=== PATIENT | male | born 1980 | race Caucasian/White ===

== ENCOUNTER 2016-07-09 15:46 | Emergency (ER) | payer MEDICAID ==
[2016-07-09] MEDS ORDERED: Haloperidol INJ IV/IM* 5 MG/ML AMP IM ONE (16:00)
[2016-07-09] MEDS ORDERED: diPHENhydraMINE IV* 50 MG/ML 1 ml VIAL (BENADRYL) ONE (16:00)
[2016-07-09] MEDS ORDERED: diPHENhydraMINE IV* 50 MG/ML 1 ml VIAL (BENADRYL) IM ONE (16:00)
[2016-07-09] MEDS ORDERED: LORazepam INJ* 2 MG/ML 1 ML VIAL ONE (16:00)
[2016-07-09] MEDS ORDERED: LORazepam INJ* 2 MG/ML 1 ML VIAL IM ONE (16:00)
[2016-07-09] MEDS ORDERED: Haloperidol INJ IV/IM* 5 MG/ML AMP ONE (16:00)
--- NOTE | 2016-07-09 18:21 | ED ---
Skylar Villarreal Salem, scribed for Doug Floyd MD on 07/09/16 at 1603 . Substance Abuse/Use - HPI Summary HPI Summary: Patient is a 36 y/o M who presents to the ED per law enforcement with EtOH intoxication. Per police, pt had been drinking at the [place] [employer] when the police were called and an advocate for the homeless requested. After the police left, pt became aggressive towards the advocate and festival attendants. The police were called again and pt was transported to the ED. Police report trouble ambulating and physical aggression. Pt has no complaints. - History Of Current Complaint Stated Complaint: 941 Hx Obtained From: Patient, Other: - Law enforcement. Onset/Duration of Drug/ETOH Abuse: Hours Ingestion History: Type/Name Of Drug - EtOH Overdose Characteristics: Oral Timing Of Abuse: Daily Severity Initially: Moderate Severity Currently: Moderate Character: Other - Physical aggressive. Aggravating Factor(s): Nothing Alleviating Factor(s): Nothing Associated Signs And Symptoms: Hostile - Allergies/Home Medications Allergies/Adverse Reactions: Allergies Allergy/AdvReac Type Severity Reaction Status Date / Time No Known Allergies Allergy Verified 10/08/15 18:48 PMH/Surg Hx/FS Hx/Imm Hx Previously Healthy: Yes Psychiatric History: Reports: Hx Substance Abuse - EtOH. - Surgical History Surgery Procedure, Year, and Place: None. - Family History Family History: Unable to obtain due to EtOH - Social History Alcohol Use: Daily Alcohol Amount: "a lot" Substance Use Type: Reports: Other Substance Use Comment - Amount & Last Used: unable to assess at this time Hx Tobacco Use: Yes Smoking Status (MU): Light Every Day Tobacco Smoker Review of Systems Positive: Other - EtOH intoxication. Positive: Other - Trouble ambulating. Positive: Other - Physical aggression. All Other Systems Reviewed And Are Negative: Yes Physical Exam Triage Information Reviewed: Yes Vital Signs On Initial Exam: Last Vital Signs 07/09/16 07/09/16 07/09/16 16:07 16:10 16:16 Temperature 98.2 F 98.2 F Pulse Rate 64 64 Respiratory 17 17 22 Rate Blood Pressure 128/87 128/87 (mmHg) O2 Sat by Pulse 97 97 Oximetry Vital Signs Reviewed: Yes Appearance: Positive: Well-Appearing, No Pain Distress Skin: Positive: Warm, Skin Color Reflects Adequate Perfusion, Dry Head/Face: Positive: Normal Head/Face Inspection Eyes: Positive: Normal ENT: Positive: Other - EtOH on breath. Neck: Positive: Supple, Nontender Respiratory/Lung Sounds: Positive: Clear to Auscultation, Breath Sounds Present Cardiovascular: Positive: RRR Abdomen Description: Positive: Nontender, Soft Musculoskeletal: Positive: Normal, Strength/ROM Intact Neurological: Positive: Normal, Slurred Speech Psychiatric: Positive: Other - Belligerent and threatening. Diagnostics - Vital Signs Vital Signs Temp Pulse Resp BP Pulse Ox 07/09/16 16:16 22 07/09/16 16:10 98.2 F 64 17 128/87 97 07/09/16 16:07 98.2 F 64 17 128/87 97 - Laboratory Lab Statement: Any lab studies that have been ordered have been reviewed, and results considered in the medical decision making process. Course/Dx - Course Course Of Treatment: Mr. South was brought in by the police for gatting aggressive with people while intoxicated in public. After arrival here it became very clear that the behavior would likely escalate. He was making threatening gestures at people and yelling. For his safety and ours he was chemically restrained and we are now waiting for him to sober up. - Diagnoses Provider Diagnoses: Alcohol intoxication - Physician Notifications Discussed Care Of Patient With: Dr. Ferro at change of shift Discharge - Discharge Plan Condition: Stable Disposition: OTHER Discharge Disposition Comment: Sign out. Patient Education Materials: Alcohol Intoxication (ED) Referrals: [facility] [place] PHYSICIAN REFERRAL [Outside] Additional Instructions: Please follow up with [facility] [place] referral. The documentation as recorded by the Skylar hernandez Salem accurately reflects the service I personally performed and the decisions made by me, Doug Floyd MD.
[2016-07-10 03:44] VITALS: BP 123/55
--- NOTE | 2016-07-10 04:26 | ED ---
Magan Villarreal Aidan, scribed for Seferino Ferro on 07/10/16 at 0424 . Progress - Progress Note Progress Note: The patient will be diagnosed with alcohol intoxication and discharged when the bus begins operating today because the patient is homeless. Course/Dx - Course Course Of Treatment: Mr. South was brought in by the police for gatting aggressive with people while intoxicated in public. After arrival here it became very clear that the behavior would likely escalate. He was making threatening gestures at people and yelling. For his safety and ours he was chemically restrained and we are now waiting for him to sober up. - Diagnoses Provider Diagnoses: Alcohol intoxication The documentation as recorded by the Magan hernandez Aidan accurately reflects the service I personally performed and the decisions made by , Seferino Ferro.
== END 2016-07-10 05:54 ==
LOC: ED 15:46
DX: F10.129 Alcohol abuse with intoxication, unspecified (principal)
CPT/HCPCS: 96372; 99282; J1200; J1630; J2060

== ENCOUNTER → 2016-10-31 00:02 | Emergency (ER) | payer MEDICAID ==
[~2016-10-31 00:02] MED LIST: Ibuprofen TAB* 600 MG PO ONE
[2016-10-31 01:55] LABS: Hematocrit 41 % (42-52); Hemoglobin 14.6 g/dl (14.0-18.0); Mean Corpuscular HGB Conc 35 g/dl (31-36); Mean Corpuscular Hemoglobin 34 pg (27-31); Mean Corpuscular Volume 95 fL (80-94); Mean Platelet Volume 7 um3 (7.4-10.4); Red Blood Count 4.32 10^6/ul (4.0-5.4); Red Cell Distribution Width 13 % (10.5-15); White Blood Count 6.5 10^3/ul (3.5-10.8)
[2016-10-31 02:06] LABS: ALT 111 U/L (7-52); AST 96 U/L (13-39); Acetaminophen < 15 mcg/mL; Albumin 4.4 g/dL (3.2-5.2); Alcohol 362 mg/dL (<10); Alkaline Phosphatase 72 U/L (34-104); Anion Gap 13 mmol/L (2-11); BUN/Creatinine Ratio 8.8 (8-20); Blood Urea Nitrogen 7 mg/dL (6-24); CO2 Carbon Dioxide 23 mmol/L (22-32); Calcium 9.2 mg/dL (8.6-10.3); Chloride 99 mmol/L (101-111); EGFR African American 140.7 (>60); EGFR Non-African American 109.4 (>60); Globulin 3.7 g/dL (2-4); Glucose 98 mg/dL (70-100); Potassium 3.8 mmol/L (3.5-5.0); Salicylate < 2.50 mg/dL (<30); Sodium 135 mmol/L (133-145); Total Protein 8.1 g/dL (6.4-8.9)
[2016-10-31 02:16] LABS: TSH (Thyroid Stimulating Horm) 0.69 mcIU/mL (0.34-5.60)
[2016-10-31 03:06] LABS: Urine Bilirubin Negative (Negative); Urine Glucose Negative (Negative); Urine Nitrite Negative (Negative)
[2016-10-31 03:17] LABS: Benzodiazepine Urine Screen None Detected (None Detect)
--- NOTE | 2016-10-31 06:46 | ED ---
Shannan Villarreal Rebecca, scribed for Seferino Ferro on 10/31/16 at 0024 . Substance Abuse/Use - HPI Summary HPI Summary: Pt is a 36 y/o M PHAM who presents to ED with EtOH intoxication. Pt reports he is unsure of who called EMS today. Confirms EtOH use tonight, unsure of the amount. Denies SIs, HIs, hallucinations. Reports he did not use any drugs besides EtOH. - History Of Current Complaint Stated Complaint: ETOH Time Seen by Provider: 10/31/16 00:11 Hx Obtained From: Patient Ingestion History: Type/Name Of Drug - EtOH Overdose Characteristics: Oral Aggravating Factor(s): Nothing Alleviating Factor(s): Nothing Associated Signs And Symptoms: Negative - Allergies/Home Medications Allergies/Adverse Reactions: Allergies Allergy/AdvReac Type Severity Reaction Status Date / Time No Known Allergies Allergy Verified 10/08/15 18:48 PMH/Surg Hx/FS Hx/Imm Hx Endocrine/Hematology History: Denies: Hx Diabetes Cardiovascular History: Denies: Hx Hypertension Psychiatric History: Reports: Hx Substance Abuse - EtOH. - Surgical History Surgery Procedure, Year, and Place: None. - Family History Known Family History: Negative: Diabetes - Social History Alcohol Use: Daily Alcohol Amount: "a lot" Substance Use Type: Reports: Other Substance Use Comment - Amount & Last Used: unable to assess at this time Hx Tobacco Use: Yes Smoking Status (MU): Light Every Day Tobacco Smoker Review of Systems Positive: Other - EtOH intoxication Neurological: Other - NEGATIVE: Hallucinations Positive: Other - NEGATIVE: SIs, HIs All Other Systems Reviewed And Are Negative: Yes Physical Exam - Summary Physical Exam Summary: Appearance: Well appearing, no pain distress Skin: warm, dry, reflects adequate perfusion Head/face: normal Eyes: EOMI, EUGENIO ENT: normal Neck: supple, nontender Respiratory: CTA, breath sounds present Cardiovascular: RRR, pulses symmetrical Abdomen: nontender, soft Bowel: present Musculoskeletal: normal, strength/ROM intact Neuro: normal, sensory motor intact, A&Ox3 Triage Information Reviewed: Yes Vital Signs Reviewed: Yes Diagnostics - Laboratory Result Diagrams: 10/31/16 01:45 10/31/16 01:45 Lab Statement: Any lab studies that have been ordered have been reviewed, and results considered in the medical decision making process. Course/Dx - Course Assessment/Plan: Pt is a 36 y/o M BIBA who presents to ED with EtOH intoxication. Pt reports he is unsure of who called EMS today. Confirms EtOH use tonight, unsure of the amount. Denies SIs, HIs, hallucinations. Reports he did not use any drugs besides EtOH. Serum alcohol of 362. Upon EtOH metabolism, pt will be D/C to home with Dx of acute alcohol intoxication and a follow up with his PCP. He understands and agrees. - Diagnoses Provider Diagnoses: Acute alcohol intoxication Discharge - Discharge Plan Condition: Stable Disposition: HOME Patient Education Materials: Alcohol Intoxication (ED) Referrals: [facility] [place] PHYS[facility]IAN REFERRAL [Outside] - 3 Days The documentation as recorded by the Shannan hernandez Rebecca accurately reflects the service I personally performed and the decisions made by me, Seferino Ferro.
[2016-10-31 11:43] VITALS: BP 110/68
== END | disposition home or self-care (01) ==
LOC: ED 00:02
DX: F10.129 Alcohol abuse with intoxication, unspecified (principal); F17.210 Nicotine dependence, cigarettes, uncomplicated
CPT/HCPCS: 36415; 80053; 80307; 80320; 80329; 81003; 84443; 85025; 99285; A9270-GY; G0480

== ENCOUNTER 2018-08-22 07:43 | Emergency (ER) | payer OTHER ==
[2018-08-22 08:02] VITALS: BP 106/72
--- NOTE | 2018-08-22 08:51 | UC ---
Elbow Pain - HPI Summary HPI Summary: A FEW DAYS AGO PATIENT FELL AND STRUCK HIS RIGHT ELBOW. DEVELOPED SWELLING WHICH HAS BEEN PERSISTENT. PAIN IS MINIMAL. NO NUMBNESS OR TINGLING. NO FEVER. - History of Current Complaint Chief Complaint: UCUpperExtremity Stated Complaint: RT ELBOW INJURY Time Seen by Provider: 08/22/18 08:08 Hx Obtained From: Patient Onset/Duration: Days, Still Present Severity Initially: Moderate Severity Currently: Mild Pain Intensity: 0 Pain Scale Used: 0-10 Numeric Location Of Pain: Is Discrete @ - RIGHT ELBOW Character: Dull Associated Signs And Symptoms: Positive: Swelling. Negative: Redness - Allergies/Home Medications Allergies/Adverse Reactions: Allergies Allergy/AdvReac Type Severity Reaction Status Date / Time wool Allergy Hives Verified 08/22/18 08:01 opiates Allergy See Comment Uncoded 08/22/18 08:01 Home Medications: Home Medications Fluoxetine (Nf) Cap [Fluoxetine HCl] 1 tab PO DAILY 08/22/18 [History Confirmed 08/22/18] Magnesium 1 tab PO QPM 08/22/18 [History Confirmed 08/22/18] Multivitamin [Multivitamins] 1 tab PO DAILY 08/22/18 [History Confirmed 08/22/18 ] Naproxen Sodium [Aleve] 440 mg PO ONCE PRN 08/22/18 [History Confirmed 08/22/18] PMH/Surg Hx/FS Hx/Imm Hx Psychological History: Bipolar Disorder, Schizophrenia - Surgical History Surgical History: Yes Surgery Procedure, Year, and Place: None. - Family History Known Family History: Negative: Diabetes - Social History Alcohol Use: Daily Alcohol Amount: "a lot" Substance Use Type: Marijuana Substance Use Comment - Amount & Last Used: in the past Smoking Status (MU): Current Every Day Smoker Household Exposure Type: Cigarettes Review of Systems All Other Systems Reviewed And Are Negative: Yes Constitutional: Positive: Negative Skin: Positive: Negative Respiratory: Positive: Negative Cardiovascular: Positive: Negative Gastrointestinal: Positive: Negative Musculoskeletal: Positive: Edema Physical Exam Triage Information Reviewed: Yes Appearance: Well-Appearing, No Pain Distress, Well-Nourished Vital Signs: Initial Vital Signs Temp 98 F 08/22/18 07:52 Pulse 59 08/22/18 07:52 Resp 18 08/22/18 07:52 BP 106/72 08/22/18 07:52 Pulse Ox 100 08/22/18 07:52 Vital Signs Reviewed: Yes Eyes: Positive: Conjunctiva Clear ENT: Positive: Hearing grossly normal Neck: Positive: Supple Respiratory: Positive: No respiratory distress, No accessory muscle use Cardiovascular: Positive: Pulses Normal Abdomen Description: Positive: Soft Musculoskeletal: Positive: ROM Intact, Edema @ - RIGHT ELBOW EDEMA, Other: - NO BONY TENDERNESS Neurological: Positive: Alert Psychological: Positive: Age Appropriate Behavior Skin: Negative: Rashes Diagnostics - Radiology RIGHT ELBOW XRAYS Radiology Interpretation Completed By: Radiologist Summary of Radiographic Findings: 1. Severe dorsal soft tissue swelling superficial to the olecranon process concerning for nonspecific soft tissue plane hematoma or hemorrhagic olecranon bursitis. 2. Small elbow joint effusion. No fracture evident. Elbow Pain Course/Dx - Course Course Of Treatment: X-RAY SHOWS CHANGES CONSISTENT WITH OLECRANON BURSITIS, POSSIBLY HEMORRHAGIC. NO BONY INJURY EVIDENT. PATIENT IS RELATIVELY PAIN-FREE AND HAS FULL RANGE OF MOTION. NO EVIDENCE OF SEPTIC BURSITIS AT PRESENT. NURYS WRAP APPLIED BY RN. ADVISED TO CONTINUE COMPRESSION AND TO AVOID RECURRENT TRAUMA TO THE AREA. FOLLOW-UP ORTHO. SYMPTOMS SHOULD RESOLVE WITH TIME ALTHOUGH THIS MAY TAKE SEVERAL WEEKS. INSTRUCTED TO GO TO THE ER WITHOUT FAIL IF HE DEVELOPS WORSENING PAIN, REDNESS OF THE SKIN, FEVER OR ANY OTHER CONCERNING SYMPTOMS. - Differential Dx/Diagnosis Provider Diagnosis: Olecranon bursitis, right elbow Discharge - Sign-Out/Discharge Documenting (check all that apply): Patient Departure All imaging exams completed and their final reports reviewed: Yes - Discharge Plan Condition: Stable Disposition: HOME Patient Education Materials: Elbow Bursitis (ED) Referrals: Bolivar Holguin MD [Medical Doctor] - 1 Week Additional Instructions: X-RAY SHOWS SOFT TISSUE SWELLING CONSISTENT WITH OLECRANON BURSITIS. POSSIBLY HEMORRHAGIC. NO BONY INJURY EVIDENT. COMPRESSION WILL HELP EXPEDITE RESOLUTION. ICE, OTC ANTI-INFLAMMATORIES NEEDED FOR DISCOMFORT. CALL ORTHO TODAY TO SCHEDULE A FOLLOW-UP APPOINTMENT. GO TO THE ER WITHOUT FAIL IF YOU DEVELOP WORSENING PAIN, FEVER, REDNESS OF THE JOINT OR ANY OTHER CONCERNING SYMPTOMS. - Billing Disposition and Condition Condition: STABLE Disposition: Home
== END 2018-08-22 09:05 | disposition home or self-care (01) ==
LOC: UCEAST 07:43
DX: M70.21 Olecranon bursitis, right elbow (principal); F31.9 Bipolar disorder, unspecified; F20.9 Schizophrenia, unspecified; F17.210 Nicotine dependence, cigarettes, uncomplicated; Z88.5 Allergy status to narcotic agent
CPT/HCPCS: 99212; G0463

== ENCOUNTER 2018-11-04 17:31 | Emergency (ER) | payer OTHER ==
--- NOTE | 2018-11-04 18:11 | ED ---
Substance Abuse/Use - HPI Summary HPI Summary: This patient is a 38 year old M presenting to ED with a chief complaint of heroin overdose since [employer]. Patient was using EtOH and heroin today. He received 10mg nasal Narcan from EMS. Upon arrival to the ED, patient reports being drowsy but is able to answer questions. He has swelling of the right hand. He states he punched something. Patient reports still being high, and says that he s only used heroin twice. The patient rates the pain 0/10 in severity. Symptoms aggravated by nothing. Symptoms alleviated by Narcan administration. - History Of Current Complaint Chief Complaint: EDSubstanceAbuse Stated Complaint: "OVERDOSE PER EMS" Time Seen by Provider: 11/04/18 17:36 Hx Obtained From: Patient, EMS Ingestion History: Approximate Time Of Ingestion - [employer] Severity Initially: Moderate Severity Currently: Mild Character: Other - Drowsy Aggravating Factor(s): Nothing Alleviating Factor(s): Nothing Associated Signs And Symptoms: Other: - Drowsy, right hand swelling - Allergies/Home Medications Allergies/Adverse Reactions: Allergies Allergy/AdvReac Type Severity Reaction Status Date / Time wool Allergy Hives Verified 11/04/18 17:50 opiates Allergy See Comment Uncoded 08/22/18 08:01 Home Medications: Home Medications Fluoxetine HCl 40 mg PO DAILY 11/04/18 [History Confirmed 11/04/18] PMH/Surg Hx/FS Hx/Imm Hx Endocrine/Hematology History: Denies: Hx Diabetes Cardiovascular History: Denies: Hx Hypertension Psychiatric History: Reports: Hx Substance Abuse - EtOH. - Surgical History Surgery Procedure, Year, and Place: None. Infectious Disease History: No Infectious Disease History: Denies: Traveled Outside the [place] in Last 30 Days - Family History Known Family History: Negative: Diabetes Family History: Unable to obtain due to EtOH - Social History Alcohol Use: Daily Alcohol Amount: "a lot" Hx Substance Use: Yes Substance Use Type: Reports: Heroin, Marijuana Substance Use Comment - Amount & Last Used: in the past Hx Tobacco Use: Yes Smoking Status (MU): Former Smoker Review of Systems Skin: Other - Right hand swelling Neurological: Other - Drowsy All Other Systems Reviewed And Are Negative: Yes Physical Exam - Summary Physical Exam Summary: Appearance: The patient is well-nourished in no acute distress and in no acute pain. Skin: The skin is warm and dry, and skin color reflects adequate perfusion. HEENT: The head is normocephalic and atraumatic. The pupils are equal and reactive. The conjunctivae are clear and without drainage. Nares are patent and without drainage. Mouth reveals moist mucous membranes, and the throat is without erythema and exudate. The external ears are intact. The ear canals are patent and without drainage. The tympanic membranes are intact. Neck: The neck is supple with full range of motion and non-tender. There are no carotid bruits. There is no neck vein distension. Respiratory: Chest is non-tender. Lungs are clear to auscultation and breath sounds are symmetrical and equal. Cardiovascular: Heart is regular rate and rhythm. There is no murmur or rub auscultated. There is no peripheral edema and pulses are symmetrical and equal. Abdomen: The abdomen is soft and non-tender. There are normal bowel sounds heard in all four quadrants and there is no organomegaly palpated. Musculoskeletal: There is no back tenderness noted. Extremities are non-tender with full range of motion. There is good capillary refill. There is no peripheral edema or calf tenderness elicited. Neurological: Slurred speech. Psychiatric: The patient has an appropriate affect and does not exhibit any anxiety or depression. Triage Information Reviewed: Yes Vital Signs On Initial Exam: Initial Vitals Temp Pulse Resp BP Pulse Ox 98.8 F 105 21 126/93 95 11/04/18 17:45 11/04/18 17:45 11/04/18 17:45 11/04/18 17:45 11/04/18 17:45 Vital Signs Reviewed: Yes Diagnostics - Vital Signs Vital Signs Temp Pulse Resp BP Pulse Ox 11/04/18 17:49 102 26 126/93 89 11/04/18 17:45 98.8 F 105 21 126/93 95 - Laboratory Lab Statement: Any lab studies that have been ordered have been reviewed, and results considered in the medical decision making process. Course/Dx - Course Course Of Treatment: Mr. South has been despondent over the of a friend recently. He drinks alcohol every day and this is not unusual for him. Today he used heroin which is very uncommon for him. EMS found him poorly responsive and had to administer several rounds of Narcan to bring him around. He has no complaint to me at this time but is homeless and states that he would. Resting for a while here. I think he needs to be evaluated for his intoxication when he awakens and prescribed Narcan. - Diagnoses Provider Diagnoses: Heroin overdose, Alcohol intoxication Discharge ED - Sign-Out/Discharge Documenting (check all that apply): Sign-Out Patient Signing out patient TO: Tgire Saundres Receiving patient FROM: Doug Floyd Patient Received Moderate/Deep Sedation with Procedure: No - Discharge Plan Condition: Stable - Billing Disposition and Condition Condition: STABLE - Attestation Statements Document Initiated by Stephanye: Yes Documenting Scribe: Jeremie Rodrigues Provider For Whom Alessia is Documenting (Include Credential): Doug Floyd MD Scribe Attestation: I, Jeremie Rodrigues, scribed for Doug Floyd MD on 11/04/18 at 1903. Scribe Documentation Reviewed: Yes Provider Attestation: The documentation as recorded by the billibJeremie barnett accurately reflects the service I personally performed and the decisions made by me, Doug Floyd MD Status of Scribe Document: Viewed
[2018-11-04] MEDS ORDERED: NS 0.9% 1000 ML** 1,000 ML IV ONE (20:52)
--- NOTE | 2018-11-04 21:11 | UC ---
- Progress Note Progress Note: Pt was signed out from Dr. Floyd to Dr. Saunders pending sobriety Re-Evaluation - Re-Evaluation First Eval Re-Evaluation Time: 21:05 Comment: ambulatory, no signs of intoxication, alert & oriented x 3 Course/Dx - Diagnoses Provider Diagnoses: Substance use disorder Discharge ED - Sign-Out/Discharge Documenting (check all that apply): Patient Departure - discharge Patient Received Moderate/Deep Sedation with Procedure: No - Discharge Plan Condition: Stable Disposition: HOME Patient Education Materials: Polysubstance Abuse (ED), Alcohol Use Disorder (ED ) Referrals: [facility] [Outside] - 3 Days Additional Instructions: You were seen in the emergency department for alcohol intoxication and heroin use. Please do not use drugs/drink and drive. Please follow up with your primary care doctor in next 2-3 days and return to emergency department for worsening or concerning symptoms. It was a pleasure taking care of you today. - Billing Disposition and Condition Condition: STABLE Disposition: Home - Attestation Statements Document Initiated by Alessia: Yes Documenting Scribe: Ivon Mitchell Provider For Whom Alessia is Documenting (Include Credential): Dr. Tigre Saunders MD Scribe Attestation: I, Ivon Mitchell, scribed for Dr. Tigre Saunders MD on 11/05/18 at 0513. Scribe Documentation Reviewed: Yes Provider Attestation: The documentation as recorded by the Ivon hernandez accurately reflects the service I personally performed and the decisions made by me, Dr. Tigre Saunders MD Status of Scribe Document: Viewed
[2018-11-04 21:35] VITALS: BP 135/94
== END 2018-11-04 21:33 | disposition home or self-care (01) ==
LOC: ED 17:31
DX: T40.1X1A Poisoning by heroin, accidental (unintentional), initial encounter (principal); F10.929 Alcohol use, unspecified with intoxication, unspecified; Y92.9 Unspecified place or not applicable; Z87.891 Personal history of nicotine dependence; Z79.899 Other long term (current) drug therapy; Z88.5 Allergy status to narcotic agent
CPT/HCPCS: 99283

== ENCOUNTER 2019-05-04 19:21 | Emergency (ER) | payer MEDICAID ==
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
[2019-05-04 19:51] LABS: ABS Lymphocytes 2.6 10^3/ul (1.0-4.8); ABS Monocytes 0.4 10^3/ul (0-0.8); ABS Neutrophils 4.1 10^3/ul (1.5-7.7); Eosinophil % 0.4 %; Hematocrit 42 % (42-52); Hemoglobin 14.7 g/dL (14.0-18.0); Lymphocyte % 36.9 %; Mean Corpuscular HGB Conc 35 g/dL (31-36); Mean Corpuscular Hemoglobin 31 pg (27-31); Mean Corpuscular Volume 90 fL (80-94); Mean Platelet Volume 6.6 fL (7.4-10.4); Platelet Count 321 10^3/uL (150-450); Red Blood Count 4.69 10^6 /uL (4.18-5.48); Red Cell Distribution Width 13 % (10-15); White Blood Count 7.1 10^3/uL (3.5-10.8)
[2019-05-04 20:08] LABS: Albumin 4.7 g/dL (3.2-5.2); Albumin/Globulin Ratio 1.3 (1-3); BUN/Creatinine Ratio 7.6 (8-20); Calcium 9.6 mg/dL (8.6-10.3); EGFR African American 132.8 (>60); EGFR Non-African American 109.8 (>60); Globulin 3.7 g/dL (2-4); Total Bilirubin 0.4 mg/dL (0.2-1.0); Total Protein 8.4 g/dL (6.4-8.9)
[2019-05-04 21:27] LABS: Urine Appearance Clear; Urine Bilirubin Negative (Negative); Urine Blood Negative (Negative); Urine Color Straw; Urine Glucose Negative (Negative); Urine Ketones Negative (Negative); Urine Nitrite Negative (Negative); Urine Protein Negative (Negative); Urine Specific Gravity 1.004 (1.010-1.030); Urine Urobilinogen Negative (Negative)
[2019-05-04] MEDS ORDERED: Haloperidol TAB* 5 MG PO ONE (21:43)
--- NOTE | 2019-05-04 23:13 | ED ---
Progress - Progress Note Progress Note: The patient is a sign-out from Dr. Keanu Liang MD, to Dr. Olga Sutherland MD, at change of shift at 2200 on 05/04/19, pending sobriety and discharge. Patient asleep without any complaints. The patient is a sign-out from Dr. Olga Sutherland MD, to Dr. Tigre Sanuders MD, at change of shift at 0700 on 05/05/19, pending sobriety and discharge. Re-Evaluation - Re-Evaluation First Eval Re-Evaluation Time: 21:44 Comment: Patient has been issuing continued verbal threats, Haldol 5 mg to be administered. Course/Dx - Diagnoses Provider Diagnoses: Alcohol intoxication, Facial contusion Discharge ED - Sign-Out/Discharge Documenting (check all that apply): Sign-Out Patient, Receiving Sign-Out Signing out patient TO: Tigre Saunders - Patient is a sign-out to Dr. Tigre Saunders MD, at change of shift at 0700 on 05/05/19, pending sobriety and discharge. Receiving patient FROM: Keanu Liang - Patient is a sign-out from Dr. Keanu Liang MD, at change of shift at 2200 on 05/04/19, pending sobriety and discharge. - Discharge Plan Condition: Stable Referrals: No Primary Care Phys,NOPCP [Primary Care Provider] - - Billing Disposition and Condition Condition: STABLE - Attestation Statements Document Initiated by Scribe: Yes Documenting Scribe: Leonela Fritz Provider For Whom Alessia is Documenting (Include Credential): Olga Sutherland MD Scribe Attestation: Leonela Villarreal, scribed for Olga Sutherland MD on 05/05/19 at 0639. Scribe Documentation Reviewed: Yes Provider Attestation: The documentation as recorded by the Leonela hernandez accurately reflects the service I personally performed and the decisions made by me, Olga Sutherland MD Status of Scribe Document: Viewed
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
[2019-05-05 07:34] VITALS: BP 114/83
== END 2019-05-05 07:33 | disposition home or self-care (01) ==
LOC: ED 19:21
DX: F10.129 Alcohol abuse with intoxication, unspecified (principal); S00.83XA Contusion of other part of head, initial encounter; X58.XXXA Exposure to other specified factors, initial encounter; Y92.9 Unspecified place or not applicable
CPT/HCPCS: 36415; 70450; 70486; 72125; 80053; 80320; 81003; 83605; 85025; 93005; 99284; A9270-GY; G0480

== ENCOUNTER 2020-08-20 06:29 | Inpatient (IN) ==
[2020-08-20] MEDS ORDERED: EPINEPHrine SYR 0.1MG/ML 10 ml SYRINGE ONE (06:31)
[2020-08-20] MEDS ORDERED: Norepinephrine 16MCG/ML IVPRE 4,000 MCG/250 ML BAG IV ONE (06:32)
[2020-08-20 06:57] LABS: Hematocrit 38 % (42-52); Hemoglobin 12.5 g/dL (14.0-18.0); Mean Corpuscular HGB Conc 33 g/dL (31-36); Mean Corpuscular Hemoglobin 30 pg (27-31); Mean Corpuscular Volume 91 fL (80-94); Mean Platelet Volume 7.7 fL (7.4-10.4); Platelet Count 358 10^3/uL (150-450); Red Blood Count 4.19 10^6 /uL (4.18-5.48); Red Cell Distribution Width 14 % (10-15); White Blood Count 13.4 10^3/uL (3.5-10.8)
[2020-08-20] MEDS ORDERED: Norepinephrine 16MCG/ML IVPRE 4,000 MCG/250 ML BAG IV SCH (07:00)
[2020-08-20 07:01] LABS: PO2 Arterial 143 mmHg (80-100)
[2020-08-20 07:04] LABS: INR 1.31 (0.86-1.15)
[2020-08-20 07:09] LABS: ALT 19 U/L (7-52); AST 29 U/L (13-39); Albumin 3.4 g/dL (3.2-5.2); Albumin/Globulin Ratio 1.4 (1-3); Alkaline Phosphatase 84 U/L (35-149); Anion Gap 23 mmol/L (2-11); Blood Urea Nitrogen 17 mg/dL (6-24); CO2 Carbon Dioxide 23 mmol/L (22-32); Calcium 8.7 mg/dL (8.6-10.3); Chloride 96 mmol/L (101-111); EGFR African American 38.3 (>60); EGFR Non-African American 31.7 (>60); Globulin 2.5 g/dL (2-4); Glucose 122 mg/dL (70-100); Potassium 3.3 mmol/L (3.5-5.0); Sodium 142 mmol/L (135-145); Total Protein 5.9 g/dL (6.4-8.9)
[2020-08-20 07:10] LABS: PCO2 Arterial 87 mmHg (35-45)
[2020-08-20] MEDS ORDERED: KCL 10 MEQ/50 ML IVPREMIX 10 MEQ/50 ML BAG IV ONE (07:16)
[2020-08-20 07:20] LABS: Troponin I 0.05 ng/mL (<0.03)
[2020-08-20] MEDS ORDERED: Rocuronium 50 mg VIAL 10 mg/ml 5 ml VIAL (50 mg) ONE ×2 (07:35→07:47)
[2020-08-20] MEDS ORDERED: Succinylcholine 200 mg VIAL 20 mg/ml 10 ml VIAL (200 mg) ONE (07:36)
[2020-08-20] MEDS ORDERED: Midazolam 10 mg/10 ml VIAL 1 mg/ml 10 ml VIAL (10 mg) ONE (07:47)
[2020-08-20] MEDS ORDERED: Piperacillin/Tazobac ADVAN 3.375 GM in NS 0.9% 100 ml BAG 100 ML IV ONE ×2 (07:50→20:16)
[2020-08-20] MEDS ORDERED: Propofol 10 mg/ml 100 ML BTL 100 ML ONE ×2 (07:50→11:58)
[2020-08-20] MEDS ORDERED: Midazolam 50 MG VIAL IV DRIP 50 ML IV SCH (08:00)
[2020-08-20] MEDS ORDERED: Lactated Ringers 1000 ml BAG 1,000 ML IV ONE (08:05)
[2020-08-20 08:51] LABS: RBC Morphology Normal (Normal)
[2020-08-20 08:52] LABS: ABS Lymphocytes 1.7 10^3/ul (1.0-4.8); ABS Monocytes 0.7 10^3/ul (0-0.8); Eosinophil % 0.1 %; Lymphocyte % 12.5 %; Nucleated Red Blood Cells % 0.1
[2020-08-20 09:22] LABS: Urine Appearance Cloudy; Urine Bilirubin Negative (Negative); Urine Blood 3+ (Negative); Urine Color Yellow; Urine Glucose 3+(>=500 mg/dL) (Negative); Urine Ketones Negative (Negative); Urine Nitrite Negative (Negative); Urine Protein 1+(30 mg/dL) (Negative); Urine Specific Gravity 1.007 (1.002-1.030); Urine Urobilinogen Negative (Negative)
[2020-08-20 09:25] LABS: Urine Benzodiazepine Screen Presumptive Positive (None Detect); Urine Cannabinoids Screen None Detected (None Detect); Urine Opiates Screen None Detected (None Detect)
[2020-08-20 09:45] LABS: Urine Bacteria Absent (Absent); Urine Red Blood Cell 3+(>10/hpf) (Absent); Urine Sperm Present (Absent); Urine Squamous Epithelial Cell Present (Absent); Urine White Blood Cell 1+(6-10/hpf) (Absent)
[2020-08-20] MEDS: Chlorhexidine MOUTHWASH 0.12% 15 ML UDC TOPICAL SCH ×4 (10:11→19:35)
[2020-08-20] MEDS: Heparin 5000 UNITS/ML 1 mL VIAL SUBCUT SCH ×3 (10:11→22:19)
[2020-08-20] MEDS: Pantoprazole VIAL 40 MG VIAL IV SCH (10:11)
[2020-08-20 10:42] LABS: PCO2 Arterial 46 mmHg (35-45); PO2 Arterial 103 mmHg (80-100)
[2020-08-20 10:47] LABS: Blood Urea Nitrogen 14 mg/dL (6-24); CO2 Carbon Dioxide 18 mmol/L (22-32); EGFR African American 87.9 (>60); EGFR Non-African American 72.6 (>60); Glucose 66 mg/dL (70-100); Magnesium 1.3 mg/dL (1.9-2.7); Potassium 2.8 mmol/L (3.5-5.0); Sodium 141 mmol/L (135-145)
[2020-08-20 10:52] LABS: Magnesium 2.9 mg/dL (1.9-2.7); Phosphorus 13.9 mg/dL (2.5-5.0)
[2020-08-20] MEDS ORDERED: Magnesium Sulf 4 GM/100 ML IV 4,000 MG/100 ML BAG IVPB ONE (10:53)
[2020-08-20 11:03] LABS: Troponin I 0.04 ng/mL (<0.03)
[2020-08-20] MEDS ORDERED: Potassium Chloride LIQUID 20 MEQ/15 ML LIQUID PO ONE (11:06)
[2020-08-20] MEDS ORDERED: Potassium Chlor 20 meq TAB.ER PO ONE (11:06)
[2020-08-20] MEDS: KCL 20 MEQ/100 ML IVPREMIX 20 MEQ/100 ML BAG IV SCH ×3 (11:09→15:27)
[2020-08-20 11:13] LABS: Anion Gap 11 mmol/L (2-11); Calcium 5.3 mg/dL (8.6-10.3); Chloride 112 mmol/L (101-111)
[2020-08-20] MEDS ORDERED: Valproic Acid IV 1,500 MG in NS 0.9% 100 ml BAG 100 ML IVPB ONE (11:26)
[2020-08-20] MEDS ORDERED: Perflutren Lipid Microsphere 3 ML VIAL ONE (11:29)
[2020-08-20] MEDS ORDERED: Calcium Gluconate 2 GM in NS 0.9% 100 ml BAG 100 ML IV ONE (11:46)
[2020-08-20] MEDS ORDERED: Valproic Acid IV 500 MG in NS 0.9% 100 ml BAG 100 ML IVPB ONE (12:00)
[2020-08-20] MEDS: Propofol 10 mg/ml 100 ML BTL 100 ML IV SCH ×3 (12:03→22:22)
[2020-08-20 12:25] LABS: Alcohol, S < 10 mg/dL (<10)
[2020-08-20] MEDS ORDERED: fentaNYL 100 mcg/2 ml 50 MCG/ML VIAL ONE (14:54)
[2020-08-20] MEDS ORDERED: fentaNYL 100 mcg/2 ml 50 MCG/ML VIAL IV SLOW PU ONE (15:00)
[2020-08-20 17:22] LABS: Calcium 8.6 mg/dL (8.6-10.3)
[2020-08-20 17:28] LABS: EGFR African American 67.4 (>60); EGFR Non-African American 55.7 (>60)
[2020-08-20 17:30] LABS: Potassium 6.1 mmol/L (3.5-5.0)
[2020-08-20 18:02] LABS: Calcium 8.6 mg/dL (8.6-10.3); EGFR African American 71.4 (>60); Magnesium 2.6 mg/dL (1.9-2.7)
[2020-08-20 18:08] LABS: Potassium 6.2 mmol/L (3.5-5.0)
[2020-08-20] MEDS ORDERED: Sodium Polystyrene ORAL.SUSP 15 GM/60 ML BTL PO ONE (18:11)
[2020-08-20] MEDS ORDERED: Acetaminophen IV 1 GM/100ML 100 ML IV ONE (18:42)
[2020-08-20 20:46] LABS: PCO2 Arterial 39 mmHg (35-45); PO2 Arterial 179 mmHg (80-100)
[2020-08-20] MEDS ORDERED: Zosyn per Pharmacy NOTE FOLLOW UP SCH (21:00)
[2020-08-20 21:14] LABS: Urine Benzodiazepine Screen Presumptive Positive (None Detect); Urine Cannabinoids Screen None Detected (None Detect); Urine Opiates Screen None Detected (None Detect)
[2020-08-20 21:29] LABS: Anion Gap 11 mmol/L (2-11); Blood Urea Nitrogen 17 mg/dL (6-24); CO2 Carbon Dioxide 24 mmol/L (22-32); Calcium 8.4 mg/dL (8.6-10.3); Chloride 99 mmol/L (101-111); EGFR African American 81.1 (>60); EGFR Non-African American 67.1 (>60); Glucose 101 mg/dL (70-100); Potassium 4.9 mmol/L (3.5-5.0); Sodium 134 mmol/L (135-145); Troponin I 0.22 ng/mL (<0.03)
[2020-08-20 21:36] LABS: Urine Buprenorphine Screen None Detected (None Detect); Urine Fentanyl Screen Presumptive Positive (None Detect); Urine Hydrocodone Screen None Detected (None Detect)
[2020-08-21] MEDS: NS 0.9% 1000 ml BAG 1,000 ML IV SCH ×4 (00:14→23:40)
[2020-08-21] MEDS: ZOSYN 3.375 GM Q8H per EXTENDED INFUSION IV SCH ×3 (00:14→17:30)
[2020-08-21] MEDS: Chlorhexidine MOUTHWASH 0.12% 15 ML UDC TOPICAL SCH ×7 (00:15→23:40)
[2020-08-21] MEDS: Propofol 10 mg/ml 100 ML BTL 100 ML IV SCH ×6 (02:45→21:44)
[2020-08-21] MEDS: fentaNYL 100 mcg/2 ml 50 MCG/ML VIAL IV SLOW PU PRN ×4 (02:58→21:56)
[2020-08-21 04:45] LABS: ALT 51 U/L (7-52); AST 196 U/L (13-39); Albumin 3.3 g/dL (3.2-5.2); Albumin/Globulin Ratio 1.1 (1-3); Alkaline Phosphatase 56 U/L (35-149); Anion Gap 9 mmol/L (2-11); Blood Urea Nitrogen 16 mg/dL (6-24); CO2 Carbon Dioxide 24 mmol/L (22-32); Calcium 8.4 mg/dL (8.6-10.3); Chloride 101 mmol/L (101-111); EGFR African American 113.1 (>60); EGFR Non-African American 93.5 (>60); Globulin 2.9 g/dL (2-4); Glucose 121 mg/dL (70-100); Magnesium 2.5 mg/dL (1.9-2.7); Phosphorus 3.4 mg/dL (2.5-5.0); Potassium 4.3 mmol/L (3.5-5.0); Sodium 134 mmol/L (135-145); Total Protein 6.2 g/dL (6.4-8.9)
[2020-08-21 04:47] LABS: Hematocrit 38 % (42-52); Hemoglobin 13.3 g/dL (14.0-18.0); Mean Corpuscular HGB Conc 35 g/dL (31-36); Mean Corpuscular Hemoglobin 30 pg (27-31); Mean Corpuscular Volume 86 fL (80-94); Mean Platelet Volume 7.3 fL (7.4-10.4); Platelet Count 239 10^3/uL (150-450); Red Blood Count 4.42 10^6 /uL (4.18-5.48); Red Cell Distribution Width 14 % (10-15); White Blood Count 13.5 10^3/uL (3.5-10.8)
[2020-08-21 04:53] LABS: Troponin I 0.16 ng/mL (<0.03)
[2020-08-21 05:10] LABS: Vitamin B12 237 pg/mL (180-914)
[2020-08-21] MEDS: Heparin 5000 UNITS/ML 1 mL VIAL SUBCUT SCH ×3 (05:48→21:04)
[2020-08-21 05:52] LABS: RBC Morphology Normal (Normal)
[2020-08-21 05:54] LABS: ABS Lymphocytes 0.5 10^3/ul (1.0-4.8); ABS Neutrophils 12.3 10^3/ul (1.5-7.7)
[2020-08-21] MEDS ORDERED: Dextran 70/Hypromellose Tears Eye Drops 15 ml BTL (for Artificials Tears) BOTH EYES PRN (06:58)
[2020-08-21] MEDS: Pantoprazole VIAL 40 MG VIAL IV SCH (08:04)
[2020-08-21] MEDS: Artificial Tear OPHTH.OINT 3.5 GM BOTH EYES PRN (11:52)
[2020-08-21] MEDS ORDERED: fentaNYL 100 mcg/2 ml 50 MCG/ML VIAL IV SLOW PU ONE (16:36)
[2020-08-21] MEDS ORDERED: fentaNYL 100 mcg/2 ml 50 MCG/ML VIAL ONE (16:37)
[2020-08-21] MEDS: Midazolam 2 mg/2 ml VIAL 1 mg/ml 2 ml VIAL (2 mg) IV SLOW PU PRN (23:45)
[2020-08-22] MEDS: Propofol 10 mg/ml 100 ML BTL 100 ML IV SCH ×8 (01:05→22:09)
[2020-08-22] MEDS ORDERED: Acetaminophen IV 1 GM/100ML 100 ML IV ONE (01:06)
[2020-08-22] MEDS: ZOSYN 3.375 GM Q8H per EXTENDED INFUSION IV SCH ×3 (02:12→15:56)
[2020-08-22] MEDS: Chlorhexidine MOUTHWASH 0.12% 15 ML UDC TOPICAL SCH ×5 (04:38→19:25)
[2020-08-22 05:06] LABS: Hematocrit 33 % (42-52); Hemoglobin 11.4 g/dL (14.0-18.0); Mean Corpuscular HGB Conc 35 g/dL (31-36); Mean Corpuscular Hemoglobin 31 pg (27-31); Mean Corpuscular Volume 89 fL (80-94); Mean Platelet Volume 7.5 fL (7.4-10.4); Platelet Count 200 10^3/uL (150-450); Red Blood Count 3.75 10^6 /uL (4.18-5.48); Red Cell Distribution Width 14 % (10-15); White Blood Count 9.5 10^3/uL (3.5-10.8)
[2020-08-22 05:22] LABS: Calcium 8.1 mg/dL (8.6-10.3); EGFR African American 180.6 (>60); EGFR Non-African American 149.2 (>60); Magnesium 2.1 mg/dL (1.9-2.7); Phosphorus 1.6 mg/dL (2.5-5.0); Potassium 3.9 mmol/L (3.5-5.0)
[2020-08-22 05:58] LABS: ABS Lymphocytes 0.7 10^3/ul (1.0-4.8); ABS Monocytes 0.5 10^3/ul (0-0.8); ABS Neutrophils 8.2 10^3/ul (1.5-7.7); Eosinophil % 0.5 %; Lymphocyte % 7.6 %
[2020-08-22] MEDS ORDERED: Potassium Phosphate IV 15 MMOLE in NS 0.9% 250 ml 250 ML IVPB ONE (06:39)
[2020-08-22] MEDS ORDERED: Meperidine 50 mg/ml SYRINGE 1 ml IV ONE (07:15)
[2020-08-22] MEDS ORDERED: Potassium Phosphate IV 30 MMOLE in NS 0.9% 250 ml 250 ML IVPB ONE (07:15)
[2020-08-22] MEDS ORDERED: Cyanocobalamin INJ 1,000 MCG/ML VIAL 1 ML VIAL IM ONE (07:36)
[2020-08-22] MEDS: Pantoprazole VIAL 40 MG VIAL IV SCH (07:47)
[2020-08-22] MEDS: Artificial Tear OPHTH.OINT 3.5 GM BOTH EYES PRN ×2 (07:47→21:49)
[2020-08-22] MEDS: Heparin 5000 UNITS/ML 1 mL VIAL SUBCUT SCH ×3 (07:47→21:49)
[2020-08-22] MEDS ORDERED: Cyanocobalamin INJ 1,000 MCG/ML VIAL 1 ML VIAL IM SCH (08:00)
[2020-08-22] MEDS: NS 0.9% 1000 ml BAG 1,000 ML IV SCH ×3 (08:07→23:31)
[2020-08-22] MEDS: Midazolam 2 mg/2 ml VIAL 1 mg/ml 2 ml VIAL (2 mg) IV SLOW PU PRN ×3 (09:24→23:15)
[2020-08-22] MEDS ORDERED: Meperidine 50 mg/ml SYRINGE 1 ml IV SCH (10:00)
[2020-08-22] MEDS: Meperidine 50 mg/ml SYRINGE 1 ml IV PRN ×3 (12:42→23:14)
[2020-08-22] MEDS: fentaNYL 100 mcg/2 ml 50 MCG/ML VIAL IV SLOW PU PRN (17:07)
[2020-08-23] MEDS: Propofol 10 mg/ml 100 ML BTL 100 ML IV SCH ×7 (01:00→19:32)
[2020-08-23] MEDS: Chlorhexidine MOUTHWASH 0.12% 15 ML UDC TOPICAL SCH ×7 (01:00→22:43)
[2020-08-23] MEDS: ZOSYN 3.375 GM Q8H per EXTENDED INFUSION IV SCH ×3 (01:04→16:52)
[2020-08-23] MEDS: fentaNYL 100 mcg/2 ml 50 MCG/ML VIAL IV SLOW PU PRN ×2 (01:14→23:18)
[2020-08-23 02:58] LABS: Calcium 7.9 mg/dL (8.6-10.3); Potassium 3.5 mmol/L (3.5-5.0)
[2020-08-23 03:04] LABS: EGFR African American 177.1 (>60); EGFR Non-African American 146.4 (>60)
[2020-08-23] MEDS: Meperidine 50 mg/ml SYRINGE 1 ml IV PRN ×2 (03:05→19:37)
[2020-08-23] MEDS: Midazolam 2 mg/2 ml VIAL 1 mg/ml 2 ml VIAL (2 mg) IV SLOW PU PRN (03:05)
[2020-08-23] MEDS ORDERED: Cisatracurium 100 MG in NS 0.9% 250 ml 200 ML IV SCH (04:30)
[2020-08-23] MEDS: Heparin 5000 UNITS/ML 1 mL VIAL SUBCUT SCH ×3 (05:59→20:08)
[2020-08-23] MEDS: Artificial Tear OPHTH.OINT 3.5 GM BOTH EYES PRN ×2 (05:59→19:46)
[2020-08-23] MEDS: NS 0.9% 1000 ml BAG 1,000 ML IV SCH ×3 (06:37→22:48)
[2020-08-23 06:45] LABS: Calcium 8.2 mg/dL (8.6-10.3); EGFR African American 187.8 (>60); EGFR Non-African American 155.2 (>60); Magnesium 1.7 mg/dL (1.9-2.7); Phosphorus 1.8 mg/dL (2.5-5.0); Potassium 3.1 mmol/L (3.5-5.0)
[2020-08-23] MEDS ORDERED: Midazolam 50 MG VIAL IV DRIP 50 ML IV SCH (08:00)
[2020-08-23] MEDS: Pantoprazole VIAL 40 MG VIAL IV SCH (08:38)
[2020-08-23] MEDS ORDERED: Magnesium Sulfate 2 gm BAG 2 GM/50 ML BAG IVPB ONE (08:51)
[2020-08-23] MEDS: KCL 20 MEQ/100 ML IVPREMIX 20 MEQ/100 ML BAG IV SCH ×5 (09:23→20:10)
[2020-08-23] MEDS ORDERED: Potassium Phosphate IV 15 MMOLE in NS 0.9% 250 ml 250 ML IVPB ONE ×2 (09:30→15:00)
[2020-08-23 13:35] LABS: EGFR African American 177.1 (>60); EGFR Non-African American 146.4 (>60); Potassium 3.3 mmol/L (3.5-5.0)
[2020-08-23] MEDS ORDERED: Rocuronium 50 mg VIAL 10 mg/ml 5 ml VIAL (50 mg) ONE (13:39)
[2020-08-23 14:24] LABS: Magnesium 1.8 mg/dL (1.9-2.7); Phosphorus 2.4 mg/dL (2.5-5.0)
[2020-08-23] MEDS ORDERED: Magnesium Sulfate IV 3 GM in NS 0.9% 100 ml BAG 100 ML IVPB ONE (15:00)
[2020-08-23] MEDS ORDERED: Rocuronium 50 mg VIAL 10 mg/ml 5 ml VIAL (50 mg) IV ONE (15:16)
[2020-08-23] MEDS ORDERED: Acetaminophen IV 1 GM/100ML 100 ML IV PRN (15:20)
[2020-08-23] MEDS: Midazolam 50 MG VIAL IV DRIP 50 ML IV SCH (22:35)
[2020-08-24] MEDS: Propofol 10 mg/ml 100 ML BTL 100 ML IV SCH ×7 (00:15→23:07)
[2020-08-24] MEDS: ZOSYN 3.375 GM Q8H per EXTENDED INFUSION IV SCH ×2 (00:16→07:38)
[2020-08-24] MEDS: Chlorhexidine MOUTHWASH 0.12% 15 ML UDC TOPICAL SCH ×6 (02:59→23:43)
[2020-08-24] MEDS: Artificial Tear OPHTH.OINT 3.5 GM BOTH EYES PRN ×2 (02:59→19:17)
[2020-08-24] MEDS: Meperidine 50 mg/ml SYRINGE 1 ml IV PRN ×5 (03:00→21:38)
[2020-08-24] MEDS: Heparin 5000 UNITS/ML 1 mL VIAL SUBCUT SCH ×3 (04:29→21:40)
[2020-08-24] MEDS: NS 0.9% 1000 ml BAG 1,000 ML IV SCH ×3 (05:59→22:29)
[2020-08-24 06:20] LABS: Hematocrit 26 % (42-52); Mean Corpuscular HGB Conc 35 g/dL (31-36); Mean Corpuscular Hemoglobin 30 pg (27-31); Mean Corpuscular Volume 88 fL (80-94); Mean Platelet Volume 6.9 fL (7.4-10.4); Platelet Count 179 10^3/uL (150-450); Red Blood Count 2.97 10^6 /uL (4.18-5.48); Red Cell Distribution Width 15 % (10-15); White Blood Count 4.6 10^3/uL (3.5-10.8)
[2020-08-24 06:58] LABS: Albumin 2.4 g/dL (3.2-5.2); Albumin/Globulin Ratio 0.9 (1-3); Calcium 7.7 mg/dL (8.6-10.3); EGFR African American 217.8 (>60); Globulin 2.6 g/dL (2-4); Magnesium 1.8 mg/dL (1.9-2.7); Phosphorus 2.3 mg/dL (2.5-5.0); Potassium 3.2 mmol/L (3.5-5.0); Total Bilirubin 0.3 mg/dL (0.2-1.0)
[2020-08-24 06:59] LABS: ABS Eosinophils 0.1 10^3/ul (0-0.6); ABS Lymphocytes 0.9 10^3/ul (1.0-4.8); ABS Monocytes 0.6 10^3/ul (0-0.8); Eosinophil % 2.3 %; Lymphocyte % 20.6 %
[2020-08-24] MEDS ORDERED: Magnesium Sulf 4 GM/100 ML IV 4,000 MG/100 ML BAG IVPB ONE (07:19)
[2020-08-24] MEDS ORDERED: Magnesium Sulfate IV 3 GM in NS 0.9% 100 ml BAG 100 ML IVPB ONE (07:30)
[2020-08-24] MEDS: Midazolam 50 MG VIAL IV DRIP 50 ML IV SCH ×3 (07:35→23:39)
[2020-08-24] MEDS: KCL 20 MEQ/100 ML IVPREMIX 20 MEQ/100 ML BAG IV SCH ×2 (07:38→10:16)
[2020-08-24] MEDS ORDERED: Potassium Phosphate IV 30 MMOLE in NS 0.9% 250 ml 250 ML IVPB ONE (08:00)
[2020-08-24] MEDS ORDERED: KCL 20 MEQ/100 ML IVPREMIX 20 MEQ/100 ML BAG IV SCH (08:00)
[2020-08-24] MEDS: Pantoprazole VIAL 40 MG VIAL IV SCH (08:08)
[2020-08-24] MEDS: fentaNYL 100 mcg/2 ml 50 MCG/ML VIAL IV SLOW PU PRN ×3 (12:41→22:07)
[2020-08-24] MEDS: Meropenem 2 GM in NS 0.9% 100 ml BAG 100 ML IVPB SCH (17:55)
[2020-08-24] MEDS ORDERED: Meropenem 2 GM in NS 0.9% 100 ml BAG 100 ML IVPB SCH (18:00)
[2020-08-24 20:43] LABS: PCO2 Arterial 31 mmHg (35-45); PO2 Arterial 74 mmHg (80-100)
[2020-08-24 21:34] LABS: Hematocrit 27 % (42-52); Hemoglobin 9.1 g/dL (14.0-18.0); Mean Corpuscular HGB Conc 34 g/dL (31-36); Mean Corpuscular Hemoglobin 30 pg (27-31); Mean Corpuscular Volume 88 fL (80-94); Mean Platelet Volume 7.2 fL (7.4-10.4); Platelet Count 196 10^3/uL (150-450); Red Blood Count 3.02 10^6 /uL (4.18-5.48); Red Cell Distribution Width 16 % (10-15); White Blood Count 7.6 10^3/uL (3.5-10.8)
[2020-08-24 21:49] LABS: Activated Partial Thrombo Time 24.4 seconds (26.0-38.0)
[2020-08-24 21:53] LABS: Albumin 2.4 g/dL (3.2-5.2); Albumin/Globulin Ratio 0.9 (1-3); Calcium 7.7 mg/dL (8.6-10.3); EGFR African American 228.1 (>60); EGFR Non-African American 188.5 (>60); Globulin 2.8 g/dL (2-4); Magnesium 1.9 mg/dL (1.9-2.7); Phosphorus 2.8 mg/dL (2.5-5.0); Potassium 3.7 mmol/L (3.5-5.0); Total Bilirubin 0.3 mg/dL (0.2-1.0); Total Protein 5.2 g/dL (6.4-8.9)
[2020-08-24 22:36] LABS: ABS Eosinophils 0.1 10^3/ul (0-0.6); ABS Lymphocytes 1.1 10^3/ul (1.0-4.8); ABS Neutrophils 5.4 10^3/ul (1.5-7.7); Anisocytosis 1+; Eosinophil % 1.7 %
[2020-08-24 22:47] LABS: Urine Appearance Cloudy; Urine Bilirubin Negative (Negative); Urine Blood 3+ (Negative); Urine Color Yellow; Urine Glucose Negative (Negative); Urine Ketones Trace (Negative); Urine Nitrite Negative (Negative); Urine Protein 1+(30 mg/dL) (Negative); Urine Specific Gravity 1.021 (1.002-1.030); Urine Urobilinogen Negative (Negative)
[2020-08-24 23:00] LABS: Urine Bacteria Absent (Absent); Urine Red Blood Cell 3+(>10/hpf) (Absent); Urine Squamous Epithelial Cell Present (Absent); Urine White Blood Cell Trace(0-5/hpf) (Absent)
[2020-08-25] MEDS ORDERED: KCL 20 MEQ/100 ML IVPREMIX 20 MEQ/100 ML BAG IV ONE ×2 (00:24→05:25)
[2020-08-25] MEDS: Propofol 10 mg/ml 100 ML BTL 100 ML IV SCH ×5 (00:46→20:01)
[2020-08-25] MEDS: fentaNYL 100 mcg/2 ml 50 MCG/ML VIAL IV SLOW PU PRN ×3 (02:15→14:28)
[2020-08-25] MEDS: Chlorhexidine MOUTHWASH 0.12% 15 ML UDC TOPICAL SCH ×5 (02:45→20:00)
[2020-08-25] MEDS: Meropenem 2 GM in NS 0.9% 100 ml BAG 100 ML IVPB SCH ×3 (02:45→20:00)
[2020-08-25] MEDS: Artificial Tear OPHTH.OINT 3.5 GM BOTH EYES PRN (04:35)
[2020-08-25] MEDS: Heparin 5000 UNITS/ML 1 mL VIAL SUBCUT SCH ×2 (04:35→13:34)
[2020-08-25] MEDS: Meperidine 50 mg/ml SYRINGE 1 ml IV PRN (04:57)
[2020-08-25 05:23] LABS: Albumin 2.4 g/dL (3.2-5.2); Albumin/Globulin Ratio 0.9 (1-3); Calcium 7.7 mg/dL (8.6-10.3); EGFR African American 203.9 (>60); EGFR Non-African American 168.5 (>60); Globulin 2.7 g/dL (2-4); Magnesium 1.7 mg/dL (1.9-2.7); Phosphorus 3.2 mg/dL (2.5-5.0); Potassium 3.9 mmol/L (3.5-5.0); Total Bilirubin 0.2 mg/dL (0.2-1.0); Total Protein 5.1 g/dL (6.4-8.9)
[2020-08-25] MEDS ORDERED: Magnesium Sulfate IV 3 GM in NS 0.9% 100 ml BAG 100 ML IVPB ONE (05:25)
[2020-08-25] MEDS: Midazolam 50 MG VIAL IV DRIP 50 ML IV SCH ×3 (06:03→20:50)
[2020-08-25] MEDS: Pantoprazole VIAL 40 MG VIAL IV SCH (08:13)
[2020-08-25] MEDS: NS 0.9% 1000 ml BAG 1,000 ML IV SCH (08:45)
[2020-08-25 09:51] LABS: ABS Eosinophils 0.1 10^3/ul (0-0.6); ABS Lymphocytes 1.5 10^3/ul (1.0-4.8); ABS Monocytes 0.7 10^3/ul (0-0.8); ABS Neutrophils 5.3 10^3/ul (1.5-7.7); Eosinophil % 1.8 %; Hematocrit 24 % (42-52); Hemoglobin 8.2 g/dL (14.0-18.0); Lymphocyte % 19.4 %; Mean Corpuscular HGB Conc 34 g/dL (31-36); Mean Corpuscular Hemoglobin 30 pg (27-31); Mean Corpuscular Volume 89 fL (80-94); Mean Platelet Volume 7.2 fL (7.4-10.4); Nucleated Red Blood Cells % 0.1; Platelet Count 196 10^3/uL (150-450); Red Cell Distribution Width 15 % (10-15); White Blood Count 7.7 10^3/uL (3.5-10.8)
[2020-08-25 09:59] LABS: Activated Partial Thrombo Time 28.6 seconds (26.0-38.0)
[2020-08-25 12:53] LABS: Albumin 2.5 g/dL (3.2-5.2); Albumin/Globulin Ratio 0.9 (1-3); Calcium 7.8 mg/dL (8.6-10.3); Globulin 2.9 g/dL (2-4); Magnesium 1.9 mg/dL (1.9-2.7); Phosphorus 2.8 mg/dL (2.5-5.0); Total Bilirubin 0.3 mg/dL (0.2-1.0); Total Protein 5.4 g/dL (6.4-8.9)
[2020-08-25] MEDS ORDERED: Morphine PCA ADULT 5 MG/ML 30 ML PCA SCH (17:45)
[2020-08-25] MEDS ORDERED: Lorazepam PYXIS KEY PRN (17:46)
[2020-08-25] MEDS ORDERED: Morphine 10 MG/ML VIAL (1 ml) IV PRN (17:46)
[2020-08-25] MEDS ORDERED: LORazepam 2 mg VIAL 1 ml IV PUSH PRN (17:46)
[2020-08-25 19:13] LABS: Urine Appearance Cloudy; Urine Bilirubin Negative (Negative); Urine Blood Negative (Negative); Urine Color Yellow; Urine Glucose Negative (Negative); Urine Ketones 1+ (Negative); Urine Nitrite Negative (Negative); Urine Protein Negative (Negative); Urine Specific Gravity 1.023 (1.002-1.030); Urine Urobilinogen Negative (Negative)
[2020-08-25] MEDS ORDERED: Heparin 1,000 UNIT/ML 10 ml (10,000 UNITS) CATHLAB/DIALYSIS IV ONE (20:30)
[2020-08-25 20:35] LABS: Hematocrit 26 % (42-52); Hemoglobin 8.8 g/dL (14.0-18.0); Mean Corpuscular HGB Conc 34 g/dL (31-36); Mean Corpuscular Hemoglobin 30 pg (27-31); Mean Corpuscular Volume 89 fL (80-94); Mean Platelet Volume 7.2 fL (7.4-10.4); Platelet Count 226 10^3/uL (150-450); Red Blood Count 2.92 10^6 /uL (4.18-5.48); Red Cell Distribution Width 16 % (10-15); White Blood Count 9.7 10^3/uL (3.5-10.8)
[2020-08-25 20:40] LABS: Albumin 2.4 g/dL (3.2-5.2); Calcium 7.9 mg/dL (8.6-10.3); Magnesium 1.8 mg/dL (1.9-2.7); Potassium 4.1 mmol/L (3.5-5.0); Total Bilirubin 0.2 mg/dL (0.2-1.0)
[2020-08-25 20:44] LABS: ABS Eosinophils 0.2 10^3/ul (0-0.6); ABS Lymphocytes 1.9 10^3/ul (1.0-4.8); ABS Monocytes 1.1 10^3/ul (0-0.8); ABS Neutrophils 6.6 10^3/ul (1.5-7.7); Eosinophil % 1.7 %; Lymphocyte % 19.5 %; Nucleated Red Blood Cells % 0.1
[2020-08-25 20:46] LABS: Albumin/Globulin Ratio 0.8 (1-3); EGFR African American 251.6 (>60); Globulin 2.9 g/dL (2-4); Total Protein 5.3 g/dL (6.4-8.9)
[2020-08-25 21:02] LABS: Activated Partial Thrombo Time 30.1 seconds (26.0-38.0); INR 1.01 (0.86-1.15)
[2020-08-25 21:08] VITALS: BP 99/62
[2020-08-27 18:39] LABS: Fentanyl Interp Positive.; Fentanyl Level 104.9 ng/mL; Norfentanyl Level 39.4 ng/mL
== END 2020-08-25 22:13 | disposition expired | DRG 196 ==
LOC: ED 06:29 → ICU 08:28
PROVIDERS: ADMIT Internal Medicine; ATTEND Internal Medicine Critical Care Medicine